=== PATIENT | male | born 1990 | race Hispanic/Latino ===

== ENCOUNTER 2017-04-10 12:40 | Emergency (ER) | payer OTHER ==
[2017-04-10 12:49] VITALS: BP 132/81
[2017-04-10] MEDS ORDERED: BOOSTRIX IM ONE (13:22)
--- NOTE | 2017-04-10 13:24 | Emergency Department Report ---
ED Laceration HPI - HPI Chief Complaint: Wound/Laceration Stated Complaint: FINGER ON LEFT HAND LACERATION Time Seen by Provider: 04/10/17 13:19 Occurred When: Today Location: Upper Extremity Severity: moderate Tetanus Status: Not up to Date Laceration Symptoms: Yes Pain, No Foreign Body Sensation, No Numbness, No Weakness Other History: Pt's finger was in glove when it got jammed between hard objects resulting in a partial fingertip avulsion. Denies numbness. ED Review of Systems ROS: Stated complaint: FINGER ON LEFT HAND LACERATION Other details as noted in HPI Comment: All other systems reviewed and negative Constitutional: denies: chills, fever Eyes: denies: eye pain, eye discharge, vision change ENT: denies: ear pain, throat pain Respiratory: denies: cough, shortness of breath, wheezing Cardiovascular: denies: chest pain, palpitations Endocrine: no symptoms reported Gastrointestinal: denies: abdominal pain, nausea, diarrhea Genitourinary: denies: urgency, dysuria Musculoskeletal: denies: back pain, joint swelling, arthralgia Skin: denies: rash, lesions Neurological: denies: headache, weakness, paresthesias Psychiatric: denies: anxiety, depression Hematological/Lymphatic: denies: easy bleeding, easy bruising ED Past Medical Hx - Past Medical History Previous Medical History?: No - Surgical History Past Surgical History?: Yes Additional Surgical History: T&A - Social History Smoking Status: Current Every Day Smoker Substance Use Type: None - Medications Home Medications: Home Medications Medication Instructions Recorded Confirmed Last Taken Type Cephalexin [Keflex] 500 mg PO Q6HR #40 capsule 04/10/17 Unknown Rx Ibuprofen [Motrin] 800 mg PO Q8HR PRN #20 tablet 04/10/17 Unknown Rx Laceration Physical Exam - Exam General: Vital signs noted. No distress. Alert and acting appropriately. Wound Length (cm): 2 Laceration Location: Upper Extremity Laceration Exam: Yes Normal Distal CMS, No Foreign Body, No Exposed Tendon, Vessel, or Nerve, No Tendon Injury ED Course Vital Signs 04/10/17 12:44 Temperature 98.4 F Pulse Rate 79 Respiratory 18 Rate Blood Pressure 132/81 O2 Sat by Pulse 97 Oximetry - Reevaluation(s) Reevaluation #1: 04/10/17 15:02 Pt in NAD and stable for d/c. - Laceration /Wound Repair Left Finger Wound Location: upper extremity (L middle finger) Wound Length (cm): 2 Wound's Depth, Shape: irregular Wound Explored: clean Irrigated w/ Saline (ccs): 500 Betadine Prep?: Yes Anesthesia: 1% Lidocaine (2% digital) Volume Anesthetic (ccs): 5 Wound Debrided: minimal Wound Repaired With: sutures Suture Size/Type: 5:0 Number of Sutures: 8 Sterile Dressing Applied?: Yes ED Medical Decision Making - Radiology Data Radiology results: image reviewed interpreted by me: tuft fx 3rd digit - Medical Decision Making Pt with open tuft fracture. Wound loosely closed, bleeding controlled. Tetanus and Ancef given. Follow up with ortho. - Differential Diagnosis fx, lac Critical care attestation.: If time is entered above; I have spent that time in minutes in the direct care of this critically ill patient, excluding procedure time. ED Disposition Clinical Impression: Open fracture of tuft of distal phalanx of finger Qualifiers: Encounter type: initial encounter Qualified Code(s): S62.639B - Displaced fracture of distal phalanx of unspecified finger, initial encounter for open fracture Disposition: TO HOME OR SELFCARE Is pt being admited?: No Condition: Good Instructions: Suture Care (ED), Finger Fracture (ED) Prescriptions: Cephalexin [Keflex] 500 mg PO Q6HR #40 capsule Ibuprofen [Motrin] 800 mg PO Q8HR PRN #20 tablet PRN Reason: Pain Referrals: SUMAN VALDEZ MD [Primary Care Provider] - 3-5 Days YAQUELIN ARCHER MD [Staff Physician] - 3-5 Days Time of Disposition: 15:03
[2017-04-10] MEDS ORDERED: ANCEF IM ONE (13:47)
[2017-04-10] MEDS ORDERED: NACL 0.9% IR ONE ×2 (13:49→14:12)
[2017-04-10] MEDS ORDERED: XYLOCAINE 2% INFILTRATI ONE (13:49)
--- NOTE | 2017-04-10 15:46 | XRay Report ---
FINAL REPORT PROCEDURE: XR HAND 3 LT TECHNIQUE: LEFT hand radiographs, AP, lateral, and oblique views. CPT 56731-YG HISTORY: middle finger injury. Pain. COMPARISON: No prior studies are available for comparison. FINDINGS: There is a mildly displaced fracture through the tuft of the distal phalanx of the middle finger. There also appears to be a laceration present. No definite radiopaque foreign bodies are seen. There is artifact from bandaging material overlying the finger. No other fractures or dislocation are identified. IMPRESSION: Mildly displaced fracture portion of the tuft of the distal phalanx of the middle finger. Laceration also appears to be present. No foreign bodies are seen per.
== END 2017-04-10 15:31 | disposition home or self-care (01) ==
LOC: ED 12:40
DX: S62.639B Displaced fracture of distal phalanx of unspecified finger, initial encounter for open fracture (principal); F17.200 Nicotine dependence, unspecified, uncomplicated; W45.8XXA Other foreign body or object entering through skin, initial encounter; Y93.9 Activity, unspecified; Y92.9 Unspecified place or not applicable; Y99.9 Unspecified external cause status
CPT/HCPCS: 12001; 73130; 90471; 90715; 96372; 99283; J0690